=== PATIENT | male | born 1990 | race Caucasian/White ===

== ENCOUNTER → 2020-05-20 10:43 | Outpatient (REF) | payer MEDICAID, SELFPAY ==
[2020-05-20 12:27] LABS: Cholesterol 157 mg/dL (200); High Density Lipoprotein 39 mg/dL; Triglycerides 120 mg/dL; Very Low Density Lipoprotein 24 mg/dL (5-40)
== END ==
LOC: BMS.EMR 10:43
PROVIDERS: Physician Assistant; PCP Family Medicine
DX: Z02.1 Encounter for pre-employment examination (principal)
CPT/HCPCS: 36415; 80061

== ENCOUNTER 2020-11-28 09:52 | Outpatient (RCR) | payer OTHER, SELFPAY ==
[2020-11-28] MEDS: COVID-19 VACC, MRNA(PFIZER)/PF 30 MCG/0.3 ML SYRINGE IM (12:30)
[2020-12-20] MEDS: COVID-19 VACC, MRNA(PFIZER)/PF 30 MCG/0.3 ML SYRINGE IM (10:10)
== END 2021-02-28 23:59 ==
LOC: IMMUN 09:52
PROVIDERS: PCP Family Medicine; Visit Provider Family Medicine
DX: Z23 Encounter for immunization (principal)
CPT/HCPCS: 0001A; 0002A; 0011A; 91300; 91301